=== PATIENT | female | born 1965 ===

== ENCOUNTER → 2017-01-16 | Outpatient (CLI) | payer BC ==
[2017-01-16 13:46] LABS: ESTIMATED AVERAGE GLUCOSE 123 mg/dl; HA1C FLAG Normal (Normal)
[2017-01-16 14:11] LABS: CHOLESTEROL/HDL RATIO 3.4; THYROID STIMULATING HORMONE 1.39 uIu/ml (0.300-4.500)
[2017-01-16 14:21] LABS: RATIO 5.3 mcg/mg (0-30.0)
== END | disposition home or self-care (01) ==
LOC: C.LABMFLN 07:38
PROVIDERS: ATTEND Family Medicine
DX: E11.9 Type 2 diabetes mellitus without complications (principal); E78.5 Hyperlipidemia, unspecified

== ENCOUNTER → 2017-12-31 | Outpatient (CLI) | payer BC ==
[2017-12-31 17:56] LABS: BASO % 0.5 %; BASO ABS # 0.05 K/uL (0-0.2); EOS % 1.8 %; EOS ABS # 0.18 K/uL (0-0.5); HEMATOCRIT 50.5 % (37-47); HEMOGLOBIN 16.5 g/dL (12.0-16.0); IG# 0.03 K/uL (0.00-0.02); LYMPH % 18.3 %; LYMPH ABS # 1.88 K/uL (1.2-3.4); MEAN CELL VOLUME 87.7 fL (80-100); MEAN CORPUSCULAR HEMOGLOBIN 28.6 pg (25-34); MEAN CORPUSCULAR HGB CONC 32.7 g/dl (32-36); MONO ABS # 0.82 K/uL (0.11-0.59); NEUT % 71.1 %; NEUT ABS # 7.32 K/uL (1.4-6.5); PLATELET COUNT 345 K/uL (130-400); RED CELL DISTRIBUTION WIDTH CV 14.6 % (11.5-14.5); RED CELL DISTRIBUTION WIDTH SD 46.8 fL (36.4-46.3); WHITE BLOOD COUNT 10.28 K/uL (4.8-10.8)
[2017-12-31 18:41] LABS: ALBUMIN 4.1 gm/dl (3.4-5.0); ALT/SGPT 25 U/L (12-78); AST/SGOT 12 U/L (15-37); BLOOD UREA NITROGEN 21 mg/dl (7-18); CALCIUM 9.3 mg/dl (8.5-10.1); CARBON DIOXIDE 23 mmol/L (21-32); CHOLESTEROL 216 mg/dl (0-200); CREATININE 0.73 mg/dl (0.60-1.20); GLUCOSE 127 mg/dl (70-99); SODIUM 140 mmol/L (136-145)
[2017-12-31 18:43] LABS: ALKALINE PHOSPHATASE 117 U/L (45-117); LDL CHOLESTEROL CALCULATED 146 mg/dl; TOTAL PROTEIN 7.7 gm/dl (6.4-8.2)
== END | disposition home or self-care (01) ==
LOC: C.LABMFLN 11:33
PROVIDERS: ATTEND Family Medicine
DX: E11.9 Type 2 diabetes mellitus without complications (principal); E78.5 Hyperlipidemia, unspecified